=== PATIENT | female | born 1985 | race Caucasian/White ===

== ENCOUNTER 2018-02-07 16:44 | Emergency (ER) | payer OTHER ==
--- NOTE | 2018-02-07 17:48 | RAD REPORT ---
EXAM DESCRIPTION: RAD - Mandible <4 Views - 02/07/2018 5:39 pm CLINICAL HISTORY: Mandibular pain FINDINGS: The left mandibular condyle lies anterior to the TMJ joint. It is uncertain if this is sec ondary to technique and positioning or a dislocation. CT scan would be helpful for further evaluation No fracture is seen
[2018-02-07] MEDS ORDERED: FENTANYL CITR 100 MCG/2 ML ONE (17:56)
[2018-02-07] MEDS ORDERED: PROPOFOL 200 MG/20 ML VIAL IV ONE (17:57)
--- NOTE | 2018-02-07 18:32 | EDPHYS ---
Physician Documentation [facility] Name: Myrna Mckeon Age: 32 yrs Sex: Female : 1985 Arrival Date: 02/07/2018 Time: 16:47 Bed 4 Private MD: ED Physician Luis Fernando Tucker HPI: 02/07 18:16 This 32 yrs old Female presents to ER via Ambulatory with complaints of Jaw rn Pain. 18:16 The patient presents with pain. Onset: The symptoms/episode began/occurred this rn morning. Duration: The symptoms are continuous. 18:22 Associated signs and symptoms: Pertinent positives: inability to eat, pain. Severity of rn symptoms: At their worst the symptoms were moderate, in the emergency department the symptoms are unchanged. The patient has experienced a previous episode. Woke up with locked jaw, went to dentist, unable to put back in, came here because not better. . 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 - Social history:: Smoking status: Patient/guardian denies using tobacco. - Family history:: not pertinent. - Hospitalizations: : No recent hospitalization is reported. ROS: 18:22 Constitutional: Negative for fever, chills, and weight loss, ENT: + trismus and left rn TMJ pain Exam: 18:22 Constitutional: This is a well developed, well nourished patient who is awake, alert, rn appears uncomfortable Head/Face: Normocephalic, atraumatic. ENT: + moderate trismus, unable to fit finger in mouth, + crooked smile. + mild tenderness left TMJ. Vital Signs: 16:56 BP 124 / 76; Pulse 81; Resp 17; Temp 97.8; Pulse Ox 100% on R/A; Weight 113.4 kg; aj Height 5 ft. 3 in. (160.02 cm); Pain 6/10; 18:00 BP 135 / 80; Pulse 80; Resp 18; Pulse Ox 100% on 2 lpm NC; sv 18:05 BP 137 / 96; Pulse 74; Resp 16; Pulse Ox 100% on 2 lpm NC; sv 18:08 BP 109 / 69; Pulse 75; Resp 13; Pulse Ox 100% on 2 lpm NC; sv 18:10 BP 125 / 91; Pulse 70; Resp 16; Pulse Ox 100% on 2 lpm NC; sv 18:15 BP 113 / 66; Pulse 71; Resp 16; Pulse Ox 100% on 2 lpm NC; sv 18:50 BP 106 / 70; Pulse 64; Resp 14; Pulse Ox 100% on 2 lpm NC; sv 16:56 Body Mass Index 44.29 (113.40 kg, 160.02 cm) aj Procedures: 18:22 Reduction: of the left TMJ, using traction, manipulation, Patient tolerated well. rn MDM: 16:59 Patient medically screened. rn 18:22 Differential diagnosis: TMJ dislocation/subluxation. Data reviewed: vital signs, nurses rn notes, radiologic studies, plain films, and as a result, I will discharge patient. 18:27 Counseling: I had a detailed discussion with the patient and/or guardian regarding: the rn historical points, exam findings, and any diagnostic results supporting the discharge/admit diagnosis, radiology results, the need for outpatient follow up, to return to the emergency department if symptoms worsen or persist or if there are any questions or concerns that arise at home. Response to treatment: the patient's symptoms have markedly improved after treatment, and as a result, I will discharge patient. Special discussion: I discussed with the patient/guardian in detail that at this point there is no indication for admission to the hospital. It is understood, however, that if the symptoms persist or worsen the patient needs to return immediately for re-evaluation. Based on the history and exam findings, there is no indication for further emergent testing or inpatient evaluation. I discussed with the patient/guardian the need to see the ENT specialist for further evaluation of the symptoms. I discussed with the patient/guardian the need to see the oral maxillofacial surgeon for further evaluation of the symptoms. 02/07 17:51 Order name: Urine Dipstick--Ancillary (enter results) bd 02/07 17:51 Order name: Urine --Ancillary (enter results) bd 02/07 17:10 Order name: Mandible (<4 Views) XRAY; Complete Time: 17:53 rn Administered Medications: No medications were administered Disposition: 02/07/18 18:30 Discharged to Home. Impression: Temporomandibular joint disorders, Temporomandibular joint dislocation. - Condition is Stable. - Discharge Instructions: Jaw Dislocation. - Medication Reconciliation Form, Thank You Letter, Antibiotic Education, Prescription Opioid Use form. - Follow up: Chiqui Gustafson MD; When: As needed; Reason: Recheck today's complaints, Re-evaluation by your physician. - Problem is new. - Symptoms have improved. Signatures: Dispatcher [employer] EDChiqui Marti, RN RN Mariaelena Mcgrath RN RN Luis Fernando Gomez MD MD rn
--- NOTE | 2018-02-07 18:32 | ER ---
Nurse's Notes [facility] Name: Myrna Mckeon Age: 32 yrs Sex: Female : 1985 Arrival Date: 02/07/2018 Time: 16:47 Bed 4 Private MD: Diagnosis: Temporomandibular joint disorders;Temporomandibular joint dislocation Presentation: 02/07 16:54 Presenting complaint: Patient states: Jaw locked since this AM. Patient seen by Dentist aj this AM, attempted to loosen jaw. Transition of care: patient was not received from another setting of care. Onset of symptoms was February 07, 2018. Initial Sepsis Screen: Does the patient meet any 2 criteria? No. Patient's initial sepsis screen is negative. Does the patient have a suspected source of infection? No. Patient's initial sepsis screen is negative. Care prior to arrival: None. 16:54 Method Of Arrival: Ambulatory 16:54 Acuity: STEPHANIE 3 aj Triage Assessment: 16:56 General: Appears in no apparent distress. uncomfortable, Behavior is calm, cooperative, aj appropriate for age. Pain: Complains of pain in left zygomatic area and left cheek. EENT: Jaw locked. Neuro: Level of Consciousness is awake, alert, obeys commands, Oriented to person, place, time, situation, Appropriate for age. Respiratory: Airway is patent Respiratory effort is even, unlabored, Respiratory pattern is regular, symmetrical. Derm: Skin is intact, is healthy with good turgor, Skin is pink, warm \T\ dry. normal. 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 - Social history:: Smoking status: Patient/guardian denies using tobacco. - Family history:: not pertinent. - Hospitalizations: : No recent hospitalization is reported. Screenin:05 Abuse screen: Denies threats or abuse. Denies injuries from another. Nutritional sv screening: No deficits noted. Tuberculosis screening: No symptoms or risk factors identified. Fall Risk None identified. Assessment: 17:05 General: Appears uncomfortable, obese, well developed, Behavior is cooperative, crying. sv Pain: Complains of pain in mouth and left cheek Pain currently is 7 out of 10 on a pain scale. Is continuous. Neuro: Level of Consciousness is awake, alert, obeys commands, Oriented to person, place, time, situation, Moves all extremities. Full function Gait is steady. Respiratory: Respiratory effort is even, unlabored, Respiratory pattern is regular, symmetrical. Derm: Skin is pink, warm \T\ dry. Musculoskeletal: Range of motion: limited in jaw has limited movement to open up. Pt reports pain. 18:00 Reassessment: Dr Tucker at bedside to perform reduction of the jaw. sv 18:24 Reassessment: Patient appears in no apparent distress at this time. Patient and/or sv family updated on plan of care and expected duration. Pain level reassessed. Patient is alert, oriented x 3, equal unlabored respirations, skin warm/dry/pink. Pt still reports feeling groggy. Pt is fully awake and answering questions appropriately. Patient states feeling better. Patient states symptoms have improved. 18:25 Reassessment: See conscious sedation flow sheet for further charting. sv 18:50 Reassessment: Patient appears in no apparent distress at this time. Patient and/or sv family updated on plan of care and expected duration. Pain level reassessed. Patient is alert, oriented x 3, equal unlabored respirations, skin warm/dry/pink. Pt up for discharge but is waiting for her ride home to get here before being discharged. Patient states feeling better. Patient states symptoms have improved. 19:04 Reassessment: Patient appears in no apparent distress at this time. Patient and/or sv family updated on plan of care and expected duration. Pain level reassessed. Patient is alert, oriented x 3, equal unlabored respirations, skin warm/dry/pink. Spouse here to drive pt home. Vital Signs: 16:56 BP 124 / 76; Pulse 81; Resp 17; Temp 97.8; Pulse Ox 100% on R/A; Weight 113.4 kg; aj Height 5 ft. 3 in. (160.02 cm); Pain 6/10; 18:00 BP 135 / 80; Pulse 80; Resp 18; Pulse Ox 100% on 2 lpm NC; sv 18:05 BP 137 / 96; Pulse 74; Resp 16; Pulse Ox 100% on 2 lpm NC; sv 18:08 BP 109 / 69; Pulse 75; Resp 13; Pulse Ox 100% on 2 lpm NC; sv 18:10 BP 125 / 91; Pulse 70; Resp 16; Pulse Ox 100% on 2 lpm NC; sv 18:15 BP 113 / 66; Pulse 71; Resp 16; Pulse Ox 100% on 2 lpm NC; sv 18:50 BP 106 / 70; Pulse 64; Resp 14; Pulse Ox 100% on 2 lpm NC; sv 16:56 Body Mass Index 44.29 (113.40 kg, 160.02 cm) ED Course: 16:47 Patient arrived in ED. as 16:55 Triage completed. aj 16:56 Arm band placed on right wrist. Patient placed in an exam room. aj 16:59 Luis Fernando Tucker MD is Attending Physician. rn 17:05 Patient has correct armband on for positive identification. Bed in low position. Call sv light in reach. Door closed. Head of bed elevated. 17:10 Jenni Bales RN is Primary Nurse. hb 17:19 Patient moved to radiology via wheelchair. ml 17:38 X-ray completed. Patient tolerated procedure well. ml 17:39 Mandible (<4 Views) XRAY In Process Unspecified. EDMS 17:40 Patient moved back from radiology. sv 17:55 Consent for conscious sedation explained by staff, explained by physician, signed by sv patient. 18:00 Assist provider with reduction of TMJ using manipulation, Set up for procedure. sv Performed by Luis Fernando Tucker MD Patient tolerated well. 18:30 Chiqui Gustafson MD is Referral Physician. rn 19:04 IV discontinued, intact, bleeding controlled, No redness/swelling at site. Pressure sv dressing applied. Administered Medications: No medications were administered Outcome: 18:30 Discharge ordered by . rn 19:04 Discharged to home via wheelchair, with family. sv 19:04 Condition: stable 19:04 Discharge instructions given to patient, family, Instructed on discharge instructions, follow up and referral plans. Demonstrated understanding of instructions, follow-up care. 19:05 Patient left the ED. sv Signatures: Dispatcher [employer] EDMS Chiqui Kruse RN RN sv Myers, Amanda, RN RN aj Martinez, Amelia as Lopez, Melissa Luis Fernando Tucker MD MD rn Baxter, Heather, RN RN hb
[2018-02-07 19:54] LABS: Urine Blood 1+ (NEG); Urine Glucose NEGATIVE (NEG); Urine Protein NEGATIVE (NEG); Urine Specific Gravity 1.015 (1.005-1.030)
== END 2018-02-07 19:05 | disposition home or self-care (01) ==
LOC: ER 16:44
PROC: 0RSDXZZ Reposition Left Temporomandibular Joint, External Approach (ICD-10-PCS; principal; 2018-02-07)
DX: S03.00XA Dislocation of jaw, unspecified side, initial encounter (principal); X58.XXXA Exposure to other specified factors, initial encounter; Y92.9 Unspecified place or not applicable
CPT/HCPCS: 70100; 81003; 81025; 99284; J3010

== ENCOUNTER 2018-09-29 22:29 | Emergency (ER) | payer OTHER ==
[2018-09-29 23:45] LABS: Urine Blood NEGATIVE (NEG); Urine Glucose NEGATIVE (NEG); Urine Protein NEGATIVE (NEG); Urine Specific Gravity 1.015 (1.005-1.030); Urine pH 6.5 (5.0-7.0)
[2018-09-29 23:45] LABS: Urine Specific Gravity 1.015 (1.005-1.030)
[2018-09-30] MEDS ORDERED: KETOROLAC 30 MG/ML INJ ONE (00:06)
[2018-09-30] MEDS ORDERED: NA CHLORIDE 0.9% 1,000 ML ONE (00:06)
[2018-09-30] MEDS ORDERED: DIPHENHYDRAMINE 50 MG/ML VIAL ONE (00:06)
[2018-09-30] MEDS ORDERED: METOCLOPRAMIDE 10 MG/2mL INJ ONE (00:06)
[2018-09-30 00:26] LABS: Hematocrit 27.1 % (36.0-45.0); MCH 20.7 pg (27.0-35.0); MCV 64.9 fL (80-100); MPV 9.1 fL (7.6-11.3); RBC Red Blood Cell Count 4.17 M/uL (3.86-4.86)
--- NOTE | 2018-09-30 00:44 | ER ---
Nurse's Notes [facility] Name: Myrna Mckeon Age: 33 yrs Sex: Female : 1985 Arrival Date: 09/29/2018 Time: 22:41 Bed 7 Private MD: Diagnosis: Migraine without aura Presentation: 09/29 22:50 Presenting complaint: Significant other states: "I've had a headache since August." Patient reports that she was seen here once before for the same complaint but was unable to follow up with a neurologist afterward. Patient reports photophobia, nausea. Denies vomiting. Transition of care: patient was not received from another setting of care. Onset of symptoms was September 10, 2018. Risk Assessment: Do you want to hurt yourself or someone else? Patient reports no desire to harm self or others. Initial Sepsis Screen: Does the patient meet any 2 criteria? No. Patient's initial sepsis screen is negative. Does the patient have a suspected source of infection? No. Patient's initial sepsis screen is negative. Care prior to arrival: None. 22:50 Method Of Arrival: Ambulatory 22:50 Acuity: STEPHANIE 3 aj1 Triage Assessment: 22:55 General: Appears in no apparent distress. uncomfortable, Behavior is calm, cooperative, aj1 appropriate for age. Pain: Complains of pain in right temporal area and right yazdanism Pain currently is 8 out of 10 on a pain scale. Neuro: Level of Consciousness is awake, alert, obeys commands, Oriented to person, place, time, situation, Moves all extremities. Full function Speech is normal, Facial symmetry appears normal, Reports headache photophobia. Cardiovascular: Patient's skin is warm and dry. Respiratory: Airway is patent Respiratory effort is even, unlabored, Respiratory pattern is regular, symmetrical. 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 - Social history:: Smoking status: Patient/guardian denies using tobacco, Patient/guardian denies using alcohol, street drugs, The patient lives with family. - Ebola Screening: : Patient denies travel to an Ebola-affected area in the 21 days before illness onset. - Family history:: not pertinent, pertinent for. Screenin:31 Abuse screen: Denies threats or abuse. Denies injuries from another. Nutritional lp1 screening: No deficits noted. Tuberculosis screening: No symptoms or risk factors identified. Fall Risk None identified. Assessment: 23:29 General: Appears uncomfortable, Behavior is agitated. Pain: Complains of pain in head lp1 Pain currently is 10 out of 10 on a pain scale. Quality of pain is described as pressure. Neuro: Level of Consciousness is awake, alert, obeys commands, Oriented to person, place, time, situation, [place] are equal bilaterally Gait is steady, Speech is normal, Reports blurred vision headache in entire photophobia. Cardiovascular: Patient's skin is warm and dry. Respiratory: Respiratory effort is even, unlabored. GI: Reports nausea. : No signs and/or symptoms were reported regarding the genitourinary system. EENT: No signs and/or symptoms were reported regarding the EENT system. Derm: Skin is pink, warm \\T\\ dry. Musculoskeletal: Circulation, motion, and sensation intact. 09/30 01:29 Reassessment: Patient returned from CT; states headache has improved but continuing to lp1 have pain. 02:10 Reassessment: Patient states feeling better. Patient states symptoms have improved. lp1 Vital Signs: 09/29 22:55 BP 127 / 79; Pulse 84; Resp 18; Temp 98.2; Pulse Ox 100% on R/A; Weight 113.4 kg (R); aj1 Height 5 ft. 4 in. (162.56 cm) (R); Pain 8/10; 23:31 BP 105 / 56; Pulse 72; Resp 18; Pulse Ox 100% on R/A; lp1 09/30 00:30 BP 102 / 53; Pulse 74; Resp 18; Pulse Ox 99% on R/A; lp1 09/29 22:55 Body Mass Index 42.91 (113.40 kg, 162.56 cm) aj1 Yuri Coma Score: 00:04 Eye Response: spontaneous(4). Verbal Response: oriented(5). Motor Response: obeys ma2 commands(6). Total: 15. ED Course: 09/29 22:41 Patient arrived in ED. es 22:53 Triage completed. aj1 22:55 Arm band placed on Patient placed in waiting room, Patient notified of wait time. aj1 23:19 Homar Leon MD is Attending Physician. ma2 23:29 Sandee Brunson RN is Primary Nurse. lp1 23:31 Patient has correct armband on for positive identification. Pulse ox on. NIBP on. lp1 12 00:10 Inserted saline lock: 20 gauge in right antecubital area, using aseptic technique. ds4 Blood collected. 00:16 CBC w/o diff Sent. ds4 00:16 Iron Level Sent. ds4 01:[address] via wheelchair. kw1 01:21 CT Head Brain wo Cont In Process Unspecified. EDMS 01:21 CT completed. Patient tolerated procedure well. Patient moved back from CT. kw1 02:10 No provider procedures requiring assistance completed. IV discontinued, No lp1 redness/swelling at site. Pressure dressing applied. Administered Medications: 00:26 Drug: NS 0.9% 1000 ml Route: IV; Rate: 1 bolus; Site: right antecubital; bb 01:31 Follow up: IV Status: Completed infusion; IV Intake: 1000ml lp1 00:26 Drug: Reglan 10 mg Route: IVP; Site: right antecubital; bb 01:16 Follow up: Response: No adverse reaction bb 00:27 Drug: Benadryl 50 mg Route: IVP; Site: right antecubital; bb 01:16 Follow up: Response: No adverse reaction bb 00:27 Drug: TORadol 30 mg Route: IVP; Site: right antecubital; bb 01:16 Follow up: Response: No adverse reaction bb Intake: 01:31 IV: 1000ml; Total: 1000ml. lp1 Outcome: 00:43 Discharge ordered by . ma2 01:48 Discharge ordered by MD. ma2 02:11 Discharged to home ambulatory, with significant other. lp1 02:11 Condition: good 02:11 Discharge instructions given to patient, significant other, Instructed on discharge instructions, follow up and referral plans. medication usage, Demonstrated understanding of instructions, follow-up care, medications, Prescriptions given X 2. 02:11 Patient left the ED. lp1 Signatures: Dispatcher [employer] Lucy Goodwin RN RN aj1 Suzie Polanco Brenda, RN RN bb Sandee Brunson RN RN lp1 Carlo Pinto ds4 Lalita Mcclure kw1 Homar Leon MD MD ma2
--- NOTE | 2018-09-30 00:44 | EDPHYS ---
Physician Documentation [facility] Name: Myrna Mckeon Age: 33 yrs Sex: Female : 1985 Arrival Date: 09/29/2018 Time: 22:41 Bed 7 Private MD: ED Physician Homar Leon HPI: 09/30 00:04 This 33 yrs old Female presents to ER via Ambulatory with complaints of ma2 Headache. 00:04 The patient complains of pain to the forehead. Onset: The symptoms/episode ma2 began/occurred gradually, 10 day(s) ago. Associated signs and symptoms: Pertinent negatives:. Severity of symptoms: At its worst the pain was moderate. Headache History: The patient has had previous headaches and this one is similar to previous episodes. The patient has experienced similar episodes in the past. 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 - Social history:: Smoking status: Patient/guardian denies using tobacco, Patient/guardian denies using alcohol, street drugs, The patient lives with family. - Ebola Screening: : Patient denies travel to an Ebola-affected area in the 21 days before illness onset. - Family history:: not pertinent, pertinent for. ROS: 09/30 00:04 Constitutional: Negative for fever, chills, and weight loss, ENT: Negative for injury, ma2 pain, and discharge, Cardiovascular: Negative for chest pain, palpitations, and edema. Neuro: Positive for headache, Negative for altered mental status, dizziness, gait disturbance, loss of consciousness, numbness, seizure activity, speech changes, near syncope, tinnitus, tremor, visual changes. All other systems are negative. Exam: 00:04 Constitutional: This is a well developed, well nourished patient who is awake, alert, ma2 and in no acute distress. Chest/axilla: Normal chest wall appearance and motion. Nontender with no deformity. No lesions are appreciated. Cardiovascular: Regular rate and rhythm with a normal S1 and S2. No gallops, murmurs, or rubs. Normal PMI, no JVD. No pulse deficits. Respiratory: Lungs have equal breath sounds bilaterally, clear to auscultation and percussion. No rales, rhonchi or wheezes noted. No increased work of breathing, no retractions or nasal flaring. Abdomen/GI: Soft, non-tender, with normal bowel sounds. No distension or tympany. No guarding or rebound. No evidence of tenderness throughout. MS/ Extremity: Pulses equal, no cyanosis. Neurovascular intact. Full, normal range of motion. Neuro: Awake and alert, GCS 15, oriented to person, place, time, and situation. Cranial nerves II-XII grossly intact. Motor strength 5/5 in all extremities. Sensory grossly intact. Cerebellar exam normal. Normal gait. Vital Signs: 09/29 22:55 BP 127 / 79; Pulse 84; Resp 18; Temp 98.2; Pulse Ox 100% on R/A; Weight 113.4 kg (R); aj1 Height 5 ft. 4 in. (162.56 cm) (R); Pain 8/10; 23:31 BP 105 / 56; Pulse 72; Resp 18; Pulse Ox 100% on R/A; lp1 09/30 00:30 BP 102 / 53; Pulse 74; Resp 18; Pulse Ox 99% on R/A; lp1 09/29 22:55 Body Mass Index 42.91 (113.40 kg, 162.56 cm) aj1 [place] Coma Score: 00:04 Eye Response: spontaneous(4). Verbal Response: oriented(5). Motor Response: obeys ma2 commands(6). Total: 15. MDM: 09/29 23:19 Patient medically screened. ma2 09/30 00:04 Differential diagnosis: cluster headache, migraine, sinusitis, tension headache. Data ma2 reviewed: vital signs, nurses notes, EMS record. Counseling: I had a detailed discussion with the patient and/or guardian regarding: the historical points, exam findings, and any diagnostic results supporting the discharge/admit diagnosis, the presence of at least one elevated blood pressure reading (>120/80) during this emergency department visit, the need for outpatient follow up. Response to treatment: the patient's symptoms have resolved after treatment. 09/29 23:31 Order name: Urine Dipstick--Ancillary (enter results); Complete Time: 00:50 ar5 09/29 23:32 Order name: Urine --Ancillary (enter results); Complete Time: 00:50 ar5 09/29 23:42 Order name: CBC w/o diff; Complete Time: 00:50 ma2 09/29 23:42 Order name: Iron Level; Complete Time: 01:30 ma2 09/30 00:51 Order name: CT Head Brain wo Cont ma2 Administered Medications: 00:26 Drug: NS 0.9% 1000 ml Route: IV; Rate: 1 bolus; Site: right antecubital; bb 01:31 Follow up: IV Status: Completed infusion; IV Intake: 1000ml lp1 00:26 Drug: Reglan 10 mg Route: IVP; Site: right antecubital; bb 01:16 Follow up: Response: No adverse reaction bb 00:27 Drug: Benadryl 50 mg Route: IVP; Site: right antecubital; bb 01:16 Follow up: Response: No adverse reaction bb 00:27 Drug: TORadol 30 mg Route: IVP; Site: right antecubital; bb 01:16 Follow up: Response: No adverse reaction bb Disposition: 09/30/18 01:48 Discharged to Home. Impression: Migraine without aura. - Condition is Stable. - Discharge Instructions: Migraine Headache. - Prescriptions for Ferrous Sulfate 325 mg (65 mg Iron) Oral Tablet - take 1 tablet by ORAL route every 8 hours; 90 tablet. Reglan 10 mg Oral Tablet - take 1 tablet by ORAL route every 6 hours . take 30 minutes before meals and at bedtime; 100 tablet. - Medication Reconciliation Form, Thank You Letter, Antibiotic Education, Prescription Opioid Use form. - Follow up: Private Physician; When: Tomorrow; Reason: Continuance of care. Signatures: Dispatcher [employer] EDLucy Miller RN RN aj1 Melissa Aguirre RN RN bb Sandee Brunson RN RN lp1 Homar Leon MD MD ma2 Corrections: (The following items were deleted from the chart) 00:51 00:43 09/30/2018 00:43 Discharged to Home. Impression: Migraine without aura. Condition ma2 is Stable. Prescriptions for Reglan 10 mg Oral Tablet - take 1 tablet by ORAL route every 6 hours . take 30 minutes before meals and at bedtime; 100 tablet. and Forms are Medication Reconciliation Form, Thank You Letter, Antibiotic Education, Prescription Opioid Use. Follow up: Private Physician; When: Tomorrow; Reason: Continuance of care. Problem is chronic. Symptoms have improved. ma2 02:11 01:48 09/30/2018 01:48 Discharged to Home. Impression: Migraine without aura. Condition lp1 is Stable. Prescriptions for Reglan 10 mg Oral Tablet - take 1 tablet by ORAL route every 6 hours . take 30 minutes before meals and at bedtime; 100 tablet, Ferrous Sulfate 325 mg (65 mg Iron) Oral Tablet - take 1 tablet by ORAL route every 8 hours; 90 tablet, Reglan 10 mg Oral Tablet - take 1 tablet by ORAL route every 6 hours . take 30 minutes before meals and at bedtime; 100 tablet. and Forms are Medication Reconciliation Form, Thank You Letter, Antibiotic Education, Prescription Opioid Use. Follow up: Private Physician; When: Tomorrow; Reason: Continuance of care. ma2
--- NOTE | 2018-09-30 07:27 | RAD REPORT ---
EXAM DESCRIPTION: CT - Head Brain Wo Cont - 09/30/2018 2:24 am CLINICAL HISTORY: Headache COMPARISON: None. TECHNIQUE: Computed axial tomography of the head was obtained. IV contrast was not requested.Prelimi nary report generated by [facility] [facility] and reviewed prior to dictation All CT scans are performed using dose optimization technique as appropriate and may include automated exposure control or mA/KV adjustment according to patient size. FINDINGS: An intracranial bleed is not seen . The ventricles are normal in caliber. No extra-axial fluid collection is noted. Fluid within the sinuses/ mastoids is not seen. IMPRESSION: No acute intracranial abnormality is seen. If patient's symptoms persist MRI of the bra in would be recommended.
== END 2018-09-30 02:11 | disposition home or self-care (01) ==
LOC: ER 22:29
DX: G43.009 Migraine without aura, not intractable, without status migrainosus (principal); F41.9 Anxiety disorder, unspecified; F32.9 Major depressive disorder, single episode, unspecified; Z88.8 Allergy status to other drugs, medicaments and biological substances
CPT/HCPCS: 36415; 70450; 81003; 81025; 82728; 85027; 96361; 96374; 96375; 99284; J2765; J7030

== ENCOUNTER 2018-11-05 20:18 | Emergency (ER) | payer OTHER ==
--- NOTE | 2018-11-05 21:38 | RAD REPORT ---
EXAM DESCRIPTION: US - BREAST/AXILLA, LIMITED - 11/05/2018 9:29 pm CLINICAL HISTORY: left breast. R/O abscess;Pain COMPARISON: No comparisons FINDINGS: Limited targeted left breast sonography was performed to lower outer quadrant. Small 19 x 2 mm subcutaneous fluid collection is suspected in the region of interest which could be a n early small abscess.
--- NOTE | 2018-11-05 21:43 | ER ---
Nurse's Notes [facility] Name: Myrna Mckeon Age: 33 yrs Sex: Female : 1985 Arrival Date: 11/05/2018 Time: 20:20 Bed 13 Private MD: Lenora Mendez Diagnosis: Cellulitis left breast Presentation: 11/05 20:32 Presenting complaint: Patient states: left breast possible abscess X2 days. Transition ak1 of care: patient was not received from another setting of care. Onset of symptoms is unknown. Risk Assessment: Do you want to hurt yourself or someone else? Patient reports no desire to harm self or others. Initial Sepsis Screen: Does the patient meet any 2 criteria? No. Patient's initial sepsis screen is negative. Does the patient have a suspected source of infection? No. Patient's initial sepsis screen is negative. Care prior to arrival: None. 20:32 Method Of Arrival: Ambulatory ak1 20:32 Acuity: STEPHANIE 4 ak1 Historical: - Allergies: 20:33 ambien; ak1 20:33 NSAIDS; ak1 - Home Meds: 20:33 cetirizine Oral [Active]; Zoloft Oral [Active]; Flonase Nasal [Active]; Xyzal Oral ak1 [Active]; - PMHx: 20:33 Anemia; Anxiety; Depression; TMJ; ak1 - PSHx: 20:33 Cholecystectomy; Gastric Bypass; ; ak1 Screenin:45 Abuse screen: Denies threats or abuse. Denies injuries from another. Nutritional aa1 screening: No deficits noted. Tuberculosis screening: No symptoms or risk factors identified. Fall Risk None identified. Assessment: 20:45 General: Appears in no apparent distress. comfortable, Behavior is calm, cooperative, aa1 appropriate for age. Pain: Complains of pain in left breast. Neuro: Level of Consciousness is awake, alert, obeys commands, Oriented to person, place, time, situation, Moves all extremities. Full function. Respiratory: Airway is patent Respiratory effort is even, unlabored, Respiratory pattern is regular, symmetrical. GI: No signs and/or symptoms were reported involving the gastrointestinal system. : No signs and/or symptoms were reported regarding the genitourinary system. EENT: No signs and/or symptoms were reported regarding the EENT system. Derm: Skin is intact, is healthy with good turgor, Skin is pink, warm \T\ dry. Bruising that is dark purple, on left breast Abscess located on left breast is half dollar sized, has no drainage. Musculoskeletal: Circulation, motion, and sensation intact. Capillary refill < 3 seconds. 21:15 Reassessment: Patient appears in no apparent distress at this time. Pt taken to u/s at aa1 this time. 21:50 Reassessment: Patient appears in no apparent distress at this time. Patient is alert, aa1 oriented x 3, equal unlabored respirations, skin warm/dry/pink. Discussed d/c \T\ f/u instructions with pt; denies questions or concerns at this time. Vital Signs: 20:32 BP 130 / 77; Pulse 108; Resp 18; Temp 98; Pulse Ox 100% on R/A; Weight 113.4 kg (R); ak1 Height 5 ft. 3 in. (160.02 cm) (R); Pain 3/10; 21:50 BP 123 / 76; Pulse 92; Resp 18; Temp 98.2; Pulse Ox 99% on R/A; Pain 2/10; aa1 20:32 Body Mass Index 44.29 (113.40 kg, 160.02 cm) ak1 ED Course: 20:20 Patient arrived in ED. es 20:20 Lenora Mendez MD is Private Physician. es 20:21 [facility]. jr8 20:21 Scar Chavarria MD is Attending Physician. jr8 20:32 Arm band placed on Patient placed in an exam room, on a stretcher, Patient notified of ak1 wait time. 20:33 Triage completed. ak1 20:45 Patient has correct armband on for positive identification. Placed in gown. Bed in low aa1 position. Pulse ox on. NIBP on. 21:15 Stella Butterfield RN is Primary Nurse. aa1 21:28 Patient moved back from ultrasound. anne 21:29 BREAST/AXILLA, LIMITED In Process Unspecified. EDMS 21:42 Jasen Bianchi MD is Referral Physician. jr8 21:50 No provider procedures requiring assistance completed. Patient did not have IV access aa1 during this emergency room visit. Administered Medications: 21:55 Drug: Clindamycin 300 mg Route: PO; aa1 22:01 Follow up: Response: Medication administered at discharge. aa1 Outcome: 21:42 Discharge ordered by . lata 22:00 Discharged to home ambulatory. aa1 22:00 Condition: good 22:00 Discharge instructions given to patient, Instructed on discharge instructions, follow up and referral plans. medication usage, Demonstrated understanding of instructions, follow-up care, medications, Prescriptions given X 1. 22:01 Patient left the ED. aa1 Signatures: Dispatcher [employer] Stella Kaur, RN RN aa1 Suzie Polanco Josh, PA PA jr8 Irina Colvin RN RN ak1 Sonu Hopper jd
--- NOTE | 2018-11-05 21:43 | EDPHYS ---
Physician Documentation [facility] Name: Myrna Mckeon Age: 33 yrs Sex: Female : 1985 Arrival Date: 11/05/2018 Time: 20:20 Bed 13 Private MD: Lenora Mendez ED Physician Scar Chavarria HPI: 11/05 22:18 This 33 yrs old Female presents to ER via Ambulatory with complaints of jr8 Breast Problem. 22:18 Onset: The symptoms/episode began/occurred gradually, yesterday. Associated signs and jr8 symptoms: The patient has no apparent associated signs or symptoms. Modifying factors: The patient symptoms are alleviated by nothing, the patient symptoms are aggravated by nothing. The patient has not experienced similar symptoms in the past. The patient has not recently seen a physician. Patient stated that she noticed maki sized red area to the left lateral breast. Today had increased in size and is much more painful. No discharge from wound site. Historical: - Allergies: 20:33 ambien; ak1 20:33 NSAIDS; ak1 - Home Meds: 20:33 cetirizine Oral [Active]; Zoloft Oral [Active]; Flonase Nasal [Active]; Xyzal Oral ak1 [Active]; - PMHx: 20:33 Anemia; Anxiety; Depression; TMJ; ak1 - PSHx: 20:33 Cholecystectomy; Gastric Bypass; ; ak1 ROS: 22:18 Eyes: Negative for injury, pain, redness, and discharge, ENT: Negative for injury, jr8 pain, and discharge, Neck: Negative for injury, pain, and swelling, Cardiovascular: Negative for chest pain, palpitations, and edema, Respiratory: Negative for shortness of breath, cough, wheezing, and pleuritic chest pain, Abdomen/GI: Negative for abdominal pain, nausea, vomiting, diarrhea, and constipation, Back: Negative for injury and pain, MS/Extremity: Negative for injury and deformity, Neuro: Negative for headache, weakness, numbness, tingling, and seizure. 22:18 Skin: Positive for abscess, cellulitis, of the left breast. Exam: 22:18 Eyes: Pupils equal round and reactive to light, extra-ocular motions intact. Lids and jr8 lashes normal. Conjunctiva and sclera are non-icteric and not injected. Cornea within normal limits. Periorbital areas with no swelling, redness, or edema. ENT: Nares patent. No nasal discharge, no septal abnormalities noted. Tympanic membranes are normal and external auditory canals are clear. Oropharynx with no redness, swelling, or masses, exudates, or evidence of obstruction, uvula midline. Mucous membranes moist. Neck: Trachea midline, no thyromegaly or masses palpated, and no cervical lymphadenopathy. Supple, full range of motion without nuchal rigidity, or vertebral point tenderness. No Meningismus. Cardiovascular: Regular rate and rhythm with a normal S1 and S2. No gallops, murmurs, or rubs. Normal PMI, no JVD. No pulse deficits. Respiratory: Lungs have equal breath sounds bilaterally, clear to auscultation and percussion. No rales, rhonchi or wheezes noted. No increased work of breathing, no retractions or nasal flaring. Abdomen/GI: Soft, non-tender, with normal bowel sounds. No distension or tympany. No guarding or rebound. No evidence of tenderness throughout. Back: No spinal tenderness. No costovertebral tenderness. Full range of motion. MS/ Extremity: Pulses equal, no cyanosis. Neurovascular intact. Full, normal range of motion. Neuro: Awake and alert, GCS 15, oriented to person, place, time, and situation. Cranial nerves II-XII grossly intact. Motor strength 5/5 in all extremities. Sensory grossly intact. Cerebellar exam normal. Normal gait. 22:18 Skin: approximately 1.5 cm round region of induration without fluctuance noted to left lateral breast. Surrounding that is approximately 2.5 cm of erythema and bruising. Tender to touch. No reactive lymphadenopathy to axilla or tail of Weathers. No nipple discharge or dimpling. No other abnormality to left breast noted . Vital Signs: 20:32 BP 130 / 77; Pulse 108; Resp 18; Temp 98; Pulse Ox 100% on R/A; Weight 113.4 kg (R); ak1 Height 5 ft. 3 in. (160.02 cm) (R); Pain 3/10; 21:50 BP 123 / 76; Pulse 92; Resp 18; Temp 98.2; Pulse Ox 99% on R/A; Pain 2/10; aa1 20:32 Body Mass Index 44.29 (113.40 kg, 160.02 cm) ak1 MDM: 20:21 Patient medically screened. jr8 21:41 Data reviewed: vital signs, nurses notes, radiologic studies, ultrasound, and as a jr8 result, I will discharge patient. Data interpreted: Pulse oximetry: on room air is 100 %. Interpretation: normal. Counseling: I had a detailed discussion with the patient and/or guardian regarding: the historical points, exam findings, and any diagnostic results supporting the discharge/admit diagnosis, radiology results, the need for outpatient follow up, a general surgeon, to return to the emergency department if symptoms worsen or persist or if there are any questions or concerns that arise at home. 22:18 ED course: Discussed with patient that on physical exam there is no fluctuance or jr8 discernible abscess felt. US shows possible early small abscess. Clinically at this time recommended antibiotics with close f/u. If she were to worsen or infected area were to enlarge or become more defined. Would want to see her immediately. Otherwise recommended General surgery f/u to insure it is getting better. Patient good with this plan and understood everything. 11/05 21:29 Order name: BREAST/AXILLA, LIMITED; Complete Time: 21:41 EDMS Administered Medications: 21:55 Drug: Clindamycin 300 mg Route: PO; aa1 22:01 Follow up: Response: Medication administered at discharge. aa1 Disposition: 11/06 04:00 Co-signature as Attending Physician, Scar Chavarria MD I agree with the assessment and tw4 plan of care. Disposition: 11/05/18 21:42 Discharged to Home. Impression: Cellulitis left breast. - Condition is Stable. - Discharge Instructions: Cellulitis, Adult. - Prescriptions for Clindamycin HCl 300 mg Oral Capsule - take 1 capsule by ORAL route every 6 hours for 10 days; 40 capsule. - Medication Reconciliation Form, Thank You Letter, Antibiotic Education, Prescription Opioid Use form. - Follow up: Jasen Bianchi MD; When: 2 - 3 days; Reason: Wound Recheck, Recheck today's complaints, Continuance of care, Re-evaluation by your physician. - Problem is new. - Symptoms have improved. Signatures: Dispatcher [employer] EDMS Stella Butterfield RN RN aa1 Ramos Restrepo PA PA jr8 Irina Colvin RN RN ak1 Scar Chavarria MD MD tw4 Corrections: (The following items were deleted from the chart) 11/05 21:29 20:58 Extrmty Nonvasular Limited+US.RAD.BRZ ordered. EDMS EDMS 22:01 21:42 11/05/2018 21:42 Discharged to Home. Impression: Cellulitis left breast. aa1 Condition is Stable. Forms are Medication Reconciliation Form, Thank You Letter, Antibiotic Education, Prescription Opioid Use. Follow up: Jasen Bianchi; When: 2 - 3 days; Reason: Wound Recheck, Recheck today's complaints, Continuance of care, Re-evaluation by your physician. Problem is new. Symptoms have improved. jr8
[2018-11-05] MEDS ORDERED: CLINDAMYCIN HCL 150 MG CAP ONE (22:07)
== END 2018-11-05 22:01 | disposition home or self-care (01) ==
LOC: ER 20:18
DX: N61.0 Mastitis without abscess (principal); Z88.6 Allergy status to analgesic agent; F41.8 Other specified anxiety disorders
CPT/HCPCS: 76642; 99284